=== PATIENT | male | born 1965 | race Two or more races ===

== ENCOUNTER → 2018-12-21 | Day surgery (SDC) | payer BC ==
[~2018-12-21] MED LIST: ACETAMINOPHEN 1000 MG/100 ML IV ONE; BACITRACIN 50,000 UNIT VIAL ONE; BUPIVACAINE HCL 0.5% INJ 30 ML VIAL INJ ONE; CEFAZOLIN SOD 1 GM/NS 50ML 100 ML IV ONE; DEXAMETHASONE SOD PHOS INJ 4 MG/ML VIAL ONE; FENTANYL CITRATE/PF 100MCG/2 ML INJ ONE; KETOROLAC TROMETHAMINE 30 MG/ML VIAL ONE; LIDOCAINE HCL 2% LOCAL INJ 5 ML SDV VIAL INJ ONE; MIDAZOLAM HCL 2 MG/2 ML VIAL ONE; NEXIUM20 MG PO; ONDANSETRON HCL INJ 2MG/ML 2ML 2 MG/ML VIAL ONE; PROPOFOL IV EMULSION 10 MG/ML 20 ML VIAL ONE; SEVOFLURANE INHAL SOLN 250 ML PEN BTL ONE; ZANTAC150 MG PO
[2018-12-21 13:45] VITALS: BP 156/95
--- NOTE | 2018-12-21 18:14 | Operative Report ---
DATE OF PROCEDURE: 12/21/2018 SURGEON: Eder Ratliff MD PREOPERATIVE DIAGNOSIS: Bilateral inguinal hernias. POSTOPERATIVE DIAGNOSIS: Bilateral inguinal hernias. PROCEDURE: Repair of bilateral inguinal hernia with mesh. SENIOR ELECTRICAL ESTIMATOR: None. ANESTHESIA: General. INDICATIONS AND FINDINGS: The patient is a 53-year-old male with complaints of bulge in his groin for many years with pain. At Surgery, the patient had bilateral direct inguinal hernias. TECHNIQUE: After adequate general anesthesia, the patient is in supine position, the inguinal areas were prepped and draped in a sterile fashion with Betadine solution. Starting on the right side, transverse incision was made and carried down through subcutaneous tissue and Yosvany's fascia until the external oblique fascia was seen, this was opened in direction of its fibers through the external ring. The ilioinguinal nerve was identified and preserved. Spermatic cord dissected free from the floor of the inguinal canal and was found to be a direct hernia. There was no evidence of an indirect hernia sac. Almost the entire floor of the inguinal canal was involved with the hernia. The transversalis fascia was opened up to the floor of the inguinal canal down to the preperitoneal space. A large Prolene mesh hernia system, which had been soaked in antibiotic solution was placed through the hernia defect with the underlay patch opened up in the preperitoneal space. Onlay patch was laid over the floor of the inguinal canal. The keyhole opening created to allow exit spermatic cord. The Onlay patch was sutured to the shelving edge of inguinal ligament laterally and conjoint tendon medially, this was done with interrupted sutures of 0 prolene. Care was taken not to entrap the general femoral or iliohypogastric nerves. Once the mesh was in place, the spermatic cord and ilioinguinal nerve were returned to normal positions. The wound was inspected for hemostasis, which was seen to be adequate. The wound was then infiltrated with 0.5% Marcaine. The external oblique fascia was closed with running suture of 2-0 Vicryl. Care was taken not to entrap the spermatic cord or ilioinguinal nerve. Yosvany's fascia was closed with running suture of 3-0 Vicryl. Skin was closed with a running subcuticular suture of 4-0 Vicryl. Dermabond and sterile dressing were applied. Attention was then turned to the left side. Transverse incision was made in left inguinal area, carried down through subcutaneous tissue and Yosvany's fascia until the external oblique fascia was seen, this was opened direct of its fibers through the external ring. The ilioinguinal nerve was identified and preserved. The spermatic cord was dissected free from the floor of the inguinal canal and was found to be a direct hernia. The herniated mass was dissected free from the surrounding tissues. The floor of the inguinal canal was opened up through the hernia defect and to the preperitoneal space. A large Prolene mesh hernia system, which had been soaked in antibiotic solution and was placed through the hernia defect with the underlay patch opened up in the preperitoneal space. The Onlay patch was laid over the floor of the inguinal canal. The keyhole opening created to allow exit of the spermatic cord. The Onlay patch was sutured to the shelving edge of inguinal ligament laterally and conjoint tendon medially, this was done interrupted sutures of 0 prolene. Care was taken not to entrap the general femoral or iliohypogastric nerves. Once the mesh was in place, the spermatic cord and ilioinguinal nerve were returned to their normal positions. The wound was inspected for hemostasis, which was seen to be adequate. The wound was then infiltrated with 0.5% Marcaine. The external oblique fascia was closed with running suture of 2-0 Vicryl. Care was taken not to entrap the spermatic cord or ilioinguinal nerve. Yosvany's fascia was closed with running suture of 3-0 Vicryl. Skin was closed with a running subcuticular suture of 4-0 Vicryl. Dermabond and sterile dressing were applied. The patient tolerated the procedure well. Estimated blood loss was 10 mL. There were no complications. All counts were correct and the patient was taken to the recovery room in satisfactory condition. MD JANI Rowley/BAYRON /[id number]
== END | disposition home or self-care (01) ==
LOC: OR 10:00
PROVIDERS: ATTEND Surgery
DX: K40.20 Bilateral inguinal hernia, without obstruction or gangrene, not specified as recurrent (principal); Z01.812 Encounter for preprocedural laboratory examination; K21.9 Gastro-esophageal reflux disease without esophagitis; Z87.891 Personal history of nicotine dependence
CPT/HCPCS: 49505; 93005; C1781; J0131; J0690; J1100; J1885; J2001; J2250; J2405; J2704; J3010